=== PATIENT | male | born 1960 | race American Indian/Alaskan Native ===

== ENCOUNTER 2016-08-18 21:24 | Emergency (ER) | payer OTHER, MEDICARE ==
[2016-08-19 01:46] VITALS: BP 135/80
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
== END 2016-08-19 02:25 | disposition home or self-care (01) ==
LOC: ED 21:24
DX: S39.012A Strain of muscle, fascia and tendon of lower back, initial encounter (principal); Z87.891 Personal history of nicotine dependence; V49.49XA Driver injured in collision with other motor vehicles in traffic accident, initial encounter; Y93.9 Activity, unspecified; Y92.9 Unspecified place or not applicable; Y99.9 Unspecified external cause status

== ENCOUNTER 2020-08-30 02:55 | Emergency (ER) | payer MEDICARE ==
--- NOTE | 2020-08-30 07:47 | Emergency Department Report ---
ED General Adult HPI - General Chief complaint: Urogenital-Male Stated complaint: CYST ON GROIN Time Seen by Provider: 08/30/20 07:46 Source: patient Mode of arrival: Ambulatory Limitations: No Limitations - History of Present Illness Initial comments: 60-year-old male presents to the ER today complaint of a tender swollen area to his right groin. Patient states that he symptoms started about 7 to 10 days ago. He states that area started to get more bigger and more painful. He denies any drainage. He denies any injury or insect bites. He is scheduled to see his general surgeon Dr. Styles for this same thing, but he states that he could not wait because of increasing pain in size. He denies any fever or chills. MD Complaint: Abscess right groin -: Gradual (7-10 days ago) - Related Data Previous Rx's Medication Instructions Recorded Last Taken Type Ibuprofen [Motrin] 800 mg PO Q8HR PRN #30 tablet 08/19/16 Unknown Rx Acetaminophen/Codeine [Tylenol 1 tab PO Q6H PRN #12 tab 08/30/20 Unknown Rx /Codeine # 3 tab] Cyclobenzaprine [Flexeril 10 MG 10 mg PO TID PRN #20 tablet 08/30/20 Unknown Rx TAB] Sulfamethoxazole/Trimethoprim 1 each PO BID #14 tablet 08/30/20 Unknown Rx [Bactrim DS TAB] Allergies Allergy/AdvReac Type Severity Reaction Status Date / Time No Known Allergies Allergy Unverified 02/25/16 07:50 ED Review of Systems ROS: Stated complaint: CYST ON GROIN Other details as noted in HPI Comment: All other systems reviewed and negative Constitutional: denies: chills, fever Genitourinary: denies: urgency, dysuria, frequency, hematuria, testicular pain, testicular mass Skin: rash (Tender, swollen, area right groin), other ED Past Medical Hx - Past Medical History Previous Medical History?: No - Surgical History Past Surgical History?: Yes Additional Surgical History: Left Hip Replacement - Social History Smoking Status: Never Smoker Substance Use Type: Alcohol - Medications Home Medications: Home Medications Medication Instructions Recorded Confirmed Last Taken Type Ibuprofen [Motrin] 800 mg PO Q8HR PRN #30 tablet 08/19/16 Unknown Rx Acetaminophen/Codeine [Tylenol 1 tab PO Q6H PRN #12 tab 08/30/20 Unknown Rx /Codeine # 3 tab] Cyclobenzaprine [Flexeril 10 MG 10 mg PO TID PRN #20 tablet 08/30/20 Unknown Rx TAB] Sulfamethoxazole/Trimethoprim 1 each PO BID #14 tablet 08/30/20 Unknown Rx [Bactrim DS TAB] ED Physical Exam - General Limitations: No Limitations General appearance: alert, in no apparent distress - Respiratory Respiratory exam: Absent: respiratory distress - Cardiovascular Cardiovascular Exam: Present: regular rate - Extremities Exam Extremities exam: Present: full ROM, other (Patient has a 7 cm x 6 cm indurated, fluctuant area with centralized pointing to the right groin region. No testicular or scrotal involvement. No penile involvement. No significant cellulitis.) - Neurological Exam Neurological exam: Present: alert, oriented X3, CN II-XII intact, normal gait - Skin Skin exam: Present: intact ED Course Vital Signs 08/30/20 08/30/20 04:48 08:52 Temperature 98.3 F 97.4 F L Pulse Rate 64 59 L Respiratory 16 18 Rate Blood Pressure 145/79 Blood Pressure 150/50 [Right] O2 Sat by Pulse 99 99 Oximetry - I & D Right Groin Type of Procedure: Simple Site: right groin Blade Size: 11 Progress: Abscess started draining prior to site being able to get anesthetized. Opening was extended slightly with an 11 inch blade. Copious amount of pus drainage noted. Culture obtained. Wound irrigated with normal saline. Iodofor m packing placed. Dressing applied. Patient tolerated procedure well without any complication. Critical care attestation.: If time is entered above; I have spent that time in minutes in the direct care of this critically ill patient, excluding procedure time. ED Disposition Clinical Impression: Abscess Disposition: DC-01 TO HOME OR SELFCARE Is pt being admited?: No Does the pt Need Aspirin: No Condition: Stable Instructions: Skin Abscess, Incision and Drainage, Care After Additional Instructions: Leave the dressing and the packing in place until you follow-up with your surgeon this coming Monday. Start the antibiotic and take it to completion. Follow-up with your general surgeon this Monday as scheduled. Return to the ER if your symptoms changes or worsens in any way. Prescriptions: Sulfamethoxazole/Trimethoprim [Bactrim DS TAB] 1 each PO BID #14 tablet Cyclobenzaprine [Flexeril 10 MG TAB] 10 mg PO TID PRN #20 tablet PRN Reason: Muscle Spasm Acetaminophen/Codeine [Tylenol /Codeine # 3 tab] 1 tab PO Q6H PRN #12 tab PRN Reason: Pain , Severe (7-10) Referrals: PRIMARY CARE,MD [Primary Care Provider] - 3-5 Days Time of Disposition: 08:24
[2020-08-30] MEDS ORDERED: LIDOCAINE (1%) 10 MG/1 ML VIAL 20 ML MDV INFILTRATI ONE (07:51)
[2020-08-30 08:53] VITALS: BP 150/50
== END 2020-08-30 08:53 | disposition home or self-care (01) ==
LOC: ED 02:55
DX: L02.214 Cutaneous abscess of groin (principal); Z98.890 Other specified postprocedural states; Z79.1 Long term (current) use of non-steroidal anti-inflammatories (NSAID); Z79.899 Other long term (current) drug therapy
CPT/HCPCS: 87116; 99282